=== PATIENT | male | born 1970 | race African-American/Black ===

== ENCOUNTER 2020-02-29 02:14 | Day surgery (SDC) | payer OTHER, SELFPAY ==
[2020-02-26 10:41] VITALS: BMI 34.5
--- NOTE | 2020-02-27 10:48 | PM.HPGS ---
History of Present Illness History of Present Illness Consent: Risks, benefits, and alternatives have been discussed and questions answered. Patient agrees to proceed with procedure. Chief complaint: right thyroid nodule Narrative: Darinel Fang is a 49 year old male he has a large right thyroid nodule admitted for elective right thyroidectomy Review of Systems Review of Systems: All systems reviewed & are unremarkable except as noted in HPI and below Meds Home Medications and Allergies Home Medications Medication Instructions Recorded Confirmed Type amlodipine 5 mg PO QPM 02/26/20 02/26/20 History hydrochlorothiazide 12.5 mg PO QPM 02/26/20 02/26/20 History naproxen 250 mg PO BID PRN 02/26/20 02/26/20 History oxcarbazepine 300 mg PO BID 02/26/20 02/26/20 History triamcinolone acetonide 1 applic TOPICAL BID PRN 02/26/20 02/26/20 History Allergies Allergy/AdvReac Type Severity Reaction Status Date / Time fish derived Allergy Unknown Verified 02/26/20 10:37 Penicillins Allergy Unknown Verified 02/26/20 10:37 Assessment and Plan Additional Plan plan is I write thyroidectomies explain all risks regarding vocal weakness
--- NOTE | 2020-02-28 08:28 | WPDANESEPPF ---
Anes - Initial Pre Proc Eval Procedure: Operation Date: 02/29/20 10:00 Proposed Procedures p Right Thyroidectomy - Austin Faria MD Date/Time: 02/28/20 08:28 Surgeon: Austin Faria MD Pre Op Diagnosis: right thyroid nodule Patient Data Age: 49 Gender: M Height: 1.78 m Weight: 109.32 kg Allergies Allergy/AdvReac Type Severity Reaction Status Date / Time fish derived Allergy Unknown Verified 02/26/20 10:37 Penicillins Allergy Unknown Verified 02/26/20 10:37 Home Medications Medication Instructions Recorded Confirmed Type amlodipine 5 mg PO QPM 02/26/20 02/26/20 History hydrochlorothiazide 12.5 mg PO QPM 02/26/20 02/26/20 History naproxen 250 mg PO BID PRN 02/26/20 02/26/20 History oxcarbazepine 300 mg PO BID 02/26/20 02/26/20 History triamcinolone acetonide 1 applic TOPICAL BID PRN 02/26/20 02/26/20 History Patient hx anesthesia problems: none Family hx anesthesia problems: none [facility] Past Medical History Medical History (Updated 02/28/20 @ 08:18 by Jorge Rich DO) Borderline personality disorder Depression GERD (gastroesophageal reflux disease) Goiter Hypertension Neuropathy UMBERTO (obstructive sleep apnea) Anes - Eval Final PreProcedure Day of Procedure 02/28/20 08:28 Patient weight: obese Heart: regular rate and rhythm Lungs: clear to auscultation and normal air movement Airway: Mallampati scale class II and special considerations poor extension Neurological: alert and oriented Last oral intake: >/= 8 hours ASA classification: III Emergent: no Anesthetic plan: proceed Anesthesia type and monitoring: general ETT and standard monitoring Informed Consent: The patient's anesthetic plan and its attendant risks and benefits were discussed with the patient/family/POA. Questions were solicited and answers provided to the satisfaction of the patient/family/POA.
[2020-02-29] VITALS (11 sets, daily range): BP systolic 125–162; BP diastolic 65–100; PULSE 62–86; RESP 12–20; TEMP 36.3–36.4; O2SAT 92–100
--- NOTE | 2020-02-29 06:12 | WPDHPUPDATE1 ---
History and Physical Update Update Date/Time: 02/29/20 06:12 History and Physical has been reviewed, including an updated exam of the patient. There are NO changes in the patient's condition. Risks, benefits, and alternatives have been discussed and questions answered. Patient agrees to proceed with procedure.
[2020-02-29] MEDS: ACETAMINOPHEN 500 MG TABLET 1000 MG PO (09:00)
[2020-02-29] MEDS: LACTATED RINGERS 1,000 ML 30 ML IV CONT ×2 (09:15→12:28)
--- NOTE | 2020-02-29 09:27 | SUR.PREOP ---
0927-DR. POWERS AWARE OF PT ALLERGY TO PCN, NO ANTIBIOTIC ORDERED/NEEDED.
[2020-02-29] MEDS: LIDO 1%/EPINEPHRINE 1:100,000 20 ML VIAL 3 ML INFILTRATE (10:26)
--- NOTE | 2020-02-29 10:52 | PM.PROC ---
Procedure Note - Detailed Date of procedure: 02/29/20 Pre-op diagnosis: right thyroid nodule Post-op diagnosis: same Procedure performed: right thyroidectomy Description of procedure: Right thyroidectomy patient was prepped in general general seizure and a low collar incision was made and subplatysmal flaps elevated midline strap muscle divided a large right thyroid nodule in the face of a multinodular goiter was identified with LigaSure dissection the mass was removed over the tracheoesophageal groove care being taken to preserve the recurrent laryngeal nerve the mass with the nodule was removed the incision closed with chromic after he maturing placed in and Monocryl Anesthesia: GLMA Surgeon: Austin Faria MD Estimated blood loss (mL): 25 Drains: No Pathology: yes Complications: No immediate complications Condition: stable Disposition: PACU Findings: large right thyroid nodule
--- NOTE | 2020-02-29 12:00 | SUR.PHASEI ---
PT AWAKE AND ALERT. RESP EVEN UNLABORED. P,W,D. HOB ELEVATED 30 DEGREES. INCISION TO ANTERIOR NECK D/I. FENTANYL GIVEN PRN. PT TALKATIVE.
--- NOTE | 2020-02-29 12:21 | SUR.PHASEI ---
PT AWAKE AND ALERT. RELAXED. VERY TALKATIVE. RESP EVEN UNLABORED. P,W,D. STATES STILL HAVING PAIN. ASKING FOR SOMETHING TO DRINK. FENTANYL GIVEN PRN.
--- NOTE | 2020-02-29 12:33 | SUR.PHASEI ---
1233; PT RELAXED; SAO2 DROPS TO 85% ON ROOM AIR. RESP EVEN UNLABORED. P,W,D. ENCOURAGED SLOW DEEP BREATHS. SAO2 REBOUNDS QUICKLY. PT STATES HE DOES NOT USE A CPAP MACHINE BUT DOES HAVE SLEEP APNEA.
--- NOTE | 2020-02-29 12:36 | SUR.PHASEI ---
PT SAO2 DROPPING TO LOW 80'S WHEN RESTING THEN REBOUNDS QUICKLY. O2 2L NC APPLIED
--- NOTE | 2020-02-29 12:48 | SUR.PHASEI ---
PT DOZING OFF AND ON.
--- NOTE | 2020-02-29 12:52 | SUR.PHASEI ---
PT ASKED IF HE COULD STAY OVERNIGHT AND HAVE SOME TEQUILA. EXPLAINED HE WOULD BE GOING HOME AND NO ALCOHOL FOR 24 HOURS.
--- NOTE | 2020-02-29 12:57 | SUR.PHASEI ---
PT AWAKE, MEETS PACU DISCHARGE CRITERIA.
--- NOTE | 2020-02-29 13:37 | SUR.PHASEII ---
SAO2 STABLE AT 96-97% ON ROOM AIR. RESP EVEN UNLABORED. P,W,D.
--- NOTE | 2020-02-29 13:40 | SUR.PHASEII ---
OFFICERS AT BEDSIDE. PT AWAKE AND ALERT. WEARING GLASSES. EATING AND DRINKING WITHOUT DIFFICULTY, WATCHING TELEVISION.
--- NOTE | 2020-02-29 15:37 | SUR.PHASEII ---
1400; PT READY FOR DISCHARGE. AWAKE AND ALERT. STATES PAIN 7/10. EATING AND DRINKING WITHOUT DIFFICULTY. WATCHING TELEVISION. TALKATIVE. RESP EVEN UNLABORED. Ric Hoyos D.
--- NOTE | 2020-02-29 15:38 | SUR.PHASEII ---
1420; PT DISCHARGED WITH LONGTERM GUARDS
== END 2020-02-29 14:20 | disposition home or self-care (01) ==
PROVIDERS: Visit Provider Otolaryngology
PROC: (CPT 60210; principal; 2020-02-29 10:00)
DX: E04.2 Nontoxic multinodular goiter (principal); I10 Essential (primary) hypertension; G47.33 Obstructive sleep apnea (adult) (pediatric); G62.9 Polyneuropathy, unspecified; K21.9 Gastro-esophageal reflux disease without esophagitis; F32.9 Major depressive disorder, single episode, unspecified; F60.3 Borderline personality disorder; E66.9 Obesity, unspecified; Z68.36 Body mass index [BMI] 36.0-36.9, adult
CPT/HCPCS: 60210; 88307; A9270; J0330; J1100; J2250; J2405; J2704; J3010; J7120

== ENCOUNTER 2024-11-10 12:07 | Outpatient (CLI) | payer OTHER, SELFPAY ==
--- NOTE | ~2024-11-10 | US_ITS ---
EXAMINATION: US FNA w image guidance DATE: 11/10/2024 13:19 INDICATION: Thyroid nodule TECHNIQUE: Ultrasound-guided fine-needle aspiration of the thyroid was performed by Dr. Brewster. The neck was prep ped and draped in the usual sterile manner. 4 mL 1% lidocaine was used for local anesthesia. 6 pass es were made with a 25G needle into the lesion. Appropriate needle location was documented with cont inuous sonographic guidance. A sterile bandage was applied. There were no immediate complications. FINDINGS: Grayscale ultrasound images demonstrate biopsy needles advanced into a 1.9 cm predominantly solid lef t thyroid nodule. IMPRESSION: 1. Successful ultrasound-guided fine needle aspiration of a 1.9 cm predominantly solid left thyroid nodule. Reviewed, dictated and finalized at location A. IMPRESSION: 1. Successful ultrasound-guided fine needle aspiration of a 1.9 cm predominant ly solid left thyroid nodule.
--- OUTSIDE RECORDS SUMMARY | 2024-11-10 12:13 | XMS_ITS | Clinical Summary ---
Author Organization [facility] Address [address] [place] [address] Care Team Providers Care Electrotype Finisher Name Role Phone Yusef Walker MD, [facility] Primary Care Provider [phone] Allergies Active Allergy Reactions Criticality Noted Date Comments Fish-Derived Products Rash Low 05/16/2024 Milk (Cow) Hives 05/16/2024 Penicillins Anaphylaxis,Hives High 05/16/2024 Medications acetaminophen (TYLENOL) 325 MG tablet Take 2 tablets (650 mg total) by mouth every 6 (six) hours as needed for Pain. Active amLODIPine (NORVASC) 10 MG tablet Take 1 tablet (10 mg total) by mouth daily. Active chlorthalidone (HYGROTEN) 25 MG tablet Take 0.5 tablets (12.5 mg total) by mouth daily. Active famotidine (PEPCID) 20 MG tablet Take 1 tablet (20 mg total) by mouth 2 (two) times daily. Active labetalol (NORMODYNE) 100 MG tablet Take 1 tablet (100 mg total) by mouth 2 (two) times daily. Active lidocaine 4 % patch Place 1 patch onto the skin daily. Remove & Discard patch within 12 hours or as directed by MD Active lisinopril (PRINIVIL) 40 MG tablet Take 1 tablet (40 mg total) by mouth daily. Active naproxen (NAPROSYN) 250 MG tablet Take 1 tablet (250 mg total) by mouth 2 (two) times daily with meals. Active tamsulosin (FLOMAX) 0.4 MG Cap Take 1 capsule (0.4 mg total) by mouth daily. Active Active Problems No known active problems Resolved Problems Problem Noted Date Diagnosed Date Resolved Date Screening for colon cancer 11/16/2023 0 11/22/2023 Screening for colon cancer 11/16/2023 0 02/14/2024 Screening for colon cancer 11/16/2023 1 Screening for colon cancer 11/16/2023 1 Encounters Date Type Department Care Team Description 09/14/2024 1:00 PM CUSTOM FURRIER - 09/14/2024 11:59 PM CUSTOM FURRIER Hospital Encounter [facility] [address] [place] [address] Courtney Duran PA Discharge Disposition: Home or Self Care (Routine Discharge) 09/14/2024 Travel from Last 3 Months Social History Tobacco Use Types Packs/Day Years Used Date Smoking Tobacco: Never Smokeless Tobacco: Never Tobacco Cessation:Counseling Given: Not Answered Alcohol Use Standard Drinks/Week Comments Never 0 (1 standard drink = 0.6 oz pur e alcohol) Sex and Gender Information Value Date Recorded Sex Assigned at Male 09/14/2024 1:13 PM CUSTOM FURRIER Legal Sex Male 11:44 AM CDT Gender Identity Not on file Sexual Orientation Not on file Last Filed Vital Signs Vital Sign Reading Time Taken Comments Blood Pressure 155/101 05/16/2024 10:44 AM CDT Pulse 74 05/16/2024 10:44 AM CDT Temperature 36.2 C (97.2 F) 05/16/2024 8:52 AM CDT Respiratory Rate 18 05/16/2024 10:44 AM CDT Oxygen Saturation 97% 05/16/2024 10:44 AM CDT Inhaled Oxygen Concentration - - Weight 113.4 kg (250 lb) 05/16/2024 8:52 AM CDT Height 177.8 cm (5' 10 ) 05/16/2024 8:52 AM CDT Body Mass Index 35.87 05/16/2024 8:52 AM CDT Plan of Treatment Health Maintenance Due Date Last Done Comments Annual Physical 1971 Hepatitis C 1986 DTaP, Tdap and Td Vaccines ( 1 - Tdap) 1987 Hepatitis B Vaccines (1 of 3 - 19+ 3-dose series) 1987 Zoster Vaccines (1 of 2) 2018 COVID-19 Vaccine (2023-2 5 season) 2024 PHQ-2 (Physician [place]) 08/02/2024 Colorectal Cancer Screening Colonoscopy (10 Years) 05/16/2034 05/16/2024 Meningococcal B Vaccine Aged Out No l onger eligible based on patient's age to complete this topic Meningococcal Vaccine Aged Out No deidre justin eligible based on patient's age to complete this topic Pneumococcal Vaccine: Pediat rics (0 to 5 Years) and At-Risk Patients (6 to 64 Years) Aged Out No longer eligi ble based on patient's age to complete this topic RSV Immunizations Under 20 Months Aged Out No longer eligible based on patient's age to complete this topic Procedures Procedure Name Priority Date/Time Associated Diagnosis Comments MRI LUMB SPINE WO CON Routine 09/14/2024 2:12 PM CUSTOM FURRIER Low back pain MRI CERV SPINE WO CON Routine 09/14/2024 1:55 PM CUSTOM FURRIER Neck pain from Last 3 Months Results * MRI LUMB SPINE WO CON (09/14/2024 2:12 PM CUSTOM FURRIER) Anatomical Region Laterality Modality Spine Magnetic Resonan ce 09/15/2024 8:27 AM CUSTOM FURRIER Impressions 09/15/2024 8:39 AM CUSTOM FURRIER IMPRESSION: 1. Mild endplate and facet joint degenerative change. No spinal stenosis. 2. Multilevel bilateral neural foramen narrowing. Worst at L4-5. Details above. Ordered By: COURTNEY DURAN Interpreted By: Nohelia Soni, 09/15/2024 8:27 AM Narrative 09/15/2024 8:39 AM CUSTOM FURRIER [address] [place] [address] IMAGING STUDIES: MRI LUMB SPINE WO CON DATE: 09/14/2024 1:55 PM INDICATION: low back pain . Pain in left lower extremity. COMPARISON: No prior studies for comparison. FINDINGS: Exam is slightly limited due to patient motion Vertebral body heights are well-maintained. No osseous edema. Mild decrease in disc space height at L5-S1 with mild disc dehydration.. The conus ends at L1 without gross abnormality.. No paraspinal lesions T12-L1: No disc herniation, spinal or foraminal stenosis. L1-L2: No disc herniation, spinal or foraminal stenosis. L2-L3: No disc herniation, spinal or foraminal stenosis. L3-L4: Mild disc bulge without disc herniation or spinal stenosis. Mild ligamentum flavum hypertrophy. 50% bilateral neural foramen narrowing. May cause symptomatology with the bilateral L3 nerve roots. Narrowing best seen on sagittal images. L4-L5: Mild posterior disc/osteophyte complex with mild impression upon the anterior thecal sac. No spinal stenosis. Mild ligamentum flavum hypertrophy and facet joint degenerative change.. 75-90% bilateral neural foramen narrowing, greater on the left side. Appearance of small bilateral neural foramen disc herniations. May cause symptomatology with the bilateral L4 nerve roots. L5-S1: Mild posterior disc/osteophyte complex. Minimal high signal within the posterior disc. May be due to annular tear. No spinal stenosis. Mild facet joint degenerative change. 50% bilateral neural foramen narrowing due to disc/osteophyte complex. May cause symptomatology with the bilateral L5 nerve roots. Procedure Note Andrés Soni MD - 09/15/[address] [place] [address] IMAGING STUDIES: MRI LUMB SPINE WO CONDATE: 09/14/2024 1:55 PM INDICATION: low back pain . Pain in left lower extremity. COMPARISON: No prior studies for comparison. FINDINGS: Exam is slightly limited due to patient motion Vertebral body heights are well-maintained. No osseous edema. Milddecrease in disc space height at L5-S1 with mild disc dehydration.. Theconus ends at L1 without gross abnormality.. No paraspinal lesions T12-L1: No disc herniation, spinal or foraminal stenosis. L1-L2: No disc herniation, spinal or foraminal stenosis. L2-L3: No disc herniation, spinal or foraminal stenosis. L3-L4: Mild disc bulge without disc herniation or spinal stenosis. Mildligamentum flavum hypertrophy. 50% bilateral neural foramen narrowing. Maycause symptomatology with the bilateral L3 nerve roots. Narrowing bestseen on sagittal images. L4-L5: Mild posterior disc/osteophyte complex with mild impression uponthe anterior thecal sac. No spinal stenosis. Mild ligamentum flavumhypertrophy and facet joint degenerative change.. 75-90% bilateral neuralforamen narrowing, greater on the left side. Appearance of small bilateralneural foramen disc herniations. May cause symptomatology with thebilateral L4 nerve roots. L5-S1: Mild posterior disc/osteophyte complex. Minimal high signal withinthe posterior disc. May be due to annular tear. No spinal stenosis. Mildfacet joint degenerative change. 50% bilateral neural foramen narrowingdue to disc/osteophyte complex. May cause symptomatology with thebilateral L5 nerve roots. IMPRESSION: 1. Mild endplate and facet joint degenerative change. No spinalstenosis. 2. Multilevel bilateral neural foramen narrowing. Worst at L4-5. Detailsabove. Ordered By: COURTNEY DURAN Interpreted By: Nohelia Soni, 09/15/2024 8:27 AM Courtney LINN MRI Final Resul t * MRI CERV SPINE WO CON (09/14/2024 1:55 PM CUSTOM FURRIER) Anatomical Region Laterality Modality Spine Magnetic Resonan ce 09/19/2024 7:24 AM CUSTOM FURRIER Impressions 09/19/2024 7:42 AM CUSTOM FURRIER IMPRESSION: 1. Status post anterior plate screw fixation with interbody fusion at C4-C7. No acute osseous abnormality 2. Severe bilateral foraminal stenosis at C7/T1 due to disc space narrowing, uncovertebral arthropathy and facet arthropathy. Moderate bilateral foraminal stenosis at C3/C4, C4/C5, C5/C6 and C6/C7. 3. Mild to moderate central canal stenosis at C7/T1 due to disc bulging. Referred By: COURTNEY DURAN Interpreted By: Jose Maria Hein MD, 09/19/2024 7:24 AM Narrative 09/19/2024 7:42 AM CUSTOM FURRIER [address] [place] [address] EXAMINATION:MRI of the cervical spine without contrast 09/14/2024 INDICATION:Neck pain, bilateral upper extremity pain TECHNIQUE: Multiplanar multisequence MR imaging of the cervical spine was performed without intravenous contrast. COMPARISON: None FINDINGS:Cervical spine is in anatomic alignment. There is artifact from a anterior plate screw fixation hardware the C4, C5-C6 and C7 levels. Bone marrow signal is within normal limits. No acute fracture or dislocation. 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 Cervical spinal cord is unremarkable in course caliber contour and signal. No prevertebral edema. No paraspinal mass or fluid collection. There is a 1.4 cm T2 hyperintense lesion within the left lobe of the thyroid gland. No stenosis at the foramen magnum or C1/C2 level C2/C3: Disc space narrowing disc bulging with mild uncovertebral facet arthropathy C3/C4: Mild disc space narrowing, disc bulging, uncovertebral arthropathy and facet arthropathy causing slight effacement of ventral thecal sac and moderate bilateral foraminal stenosis. C4/C5: Mild uncovertebral facet arthropathy causing moderate bilateral foraminal stenosis. C5/C6: Disc space narrowing, uncovertebral arthropathy and facet arthropathy causing moderate bilateral neural foraminal stenosis C6/C7: Disc space narrowing, uncovertebral arthropathy and facet arthropathy causing moderate bilateral foraminal stenosis. C7/T1: Disc space narrowing, disc bulging, uncovertebral arthropathy and facet arthropathy causing mild to moderate central canal stenosis and severe bilateral foraminal stenosis. The thecal sac measures 6 mm Evaluation is limited due to motion and artifact. Procedure Note Jose Maria Hein MD - 09/19/[address] [place] [address] EXAMINATION:MRI of the cervical spine without contrast 09/14/2024 INDICATION:Neck pain, bilateral upper extremity pain TECHNIQUE: Multiplanar multisequence MR imaging of the cervical spine wasperformed without intravenous contrast. COMPARISON: None FINDINGS:Cervical spine is in anatomic alignment. There is artifact froma anterior plate screw fixation hardware the C4, C5-C6 and C7 levels.Bone marrow signal is within normal limits. No acute fracture ordislocation. There is a small chronic infarct within the heather to the right of themidline. Cervical spinal cord is unremarkable in course caliber contourand signal. No prevertebral edema. No paraspinal mass or fluidcollection. There is a 1.4 cm T2 hyperintense lesion within the left lobeof the thyroid gland. No stenosis at the foramen magnum or C1/C2 level C2/C3: Disc space narrowing disc bulging with mild uncovertebral facetarthropathy C3/C4: Mild disc space narrowing, disc bulging, uncovertebral arthropathyand facet arthropathy causing slight effacement of ventral thecal sac andmoderate bilateral foraminal stenosis. C4/C5: Mild uncovertebral facet arthropathy causing moderate bilateralforaminal stenosis. C5/C6: Disc space narrowing, uncovertebral arthropathy and facetarthropathy causing moderate bilateral neural foraminal stenosis C6/C7: Disc space narrowing, uncovertebral arthropathy and facetarthropathy causing moderate bilateral foraminal stenosis. C7/T1: Disc space narrowing, disc bulging, uncovertebral arthropathy andfacet arthropathy causing mild to moderate central canal stenosis andsevere bilateral foraminal stenosis. The thecal sac measures 6 mm Evaluation is limited due to motion and artifact. IMPRESSION: 1. Status post anterior plate screw fixation with interbody fusion atC4-C7. No acute osseous abnormality 2. Severe bilateral foraminal stenosis at C7/T1 due to disc spacenarrowing, uncovertebral arthropathy and facet arthropathy. Moderatebilateral foraminal stenosis at C3/C4, C4/C5, C5/C6 and C6/C7. 3. Mild to moderate central canal stenosis at C7/T1 due to discbulging. Referred By: COURTNEY DURAN Interpreted By: Jose Maria Hein MD, 09/19/2024 7:24 AM Courtney Duran [place] MRI Final Resul t from Last 3 Months Insurance Care Teams Electrotype Finisher Relationship Specialty Start Date End Date Baltazar Holbrook MD [facility] [address] [place] [id number] PCP - General INTERNAL MEDICINE 08/16/19
--- OUTSIDE RECORDS SUMMARY | 2024-11-10 12:13 | XMS_ITS | Clinical Summary ---
Author Organization [facility] Address [address] [place] [address] Care Team Providers Care Quality Control Scientist Name Role Phone Unavailable Primary Care Provider Unavailabl e Source Comments [facility],non-owned Affiliates and Associated Physician Practices is amultiple site organization consisting of ambulatory clinics and hospital sitesin [place], [place], [place] and [place]. This disclosure is being madepursuant to the Care Everywhere program and may not contain all information available regarding this patient. Last updated 18.[facility] Allergies Active Allergy Reactions Criticality Noted Date Comments Fish-Derived Products Unknown 12/30/2022 Penicillins Unknown 12/30/2022 Medications * Be aware that medications may not be up to date on this document. Alwaysverify current medications with the patient. Medication Sig Dispensed Refills Start Date End Date Status amLODIPine (Norvasc) 10 MG tablet Take 1 (one) tablet by mouth once daily Active chlorthalidone (Hygroton) 25 MG tablet Take 0.5 (one-half) tablet by mouth once daily Active labetalol (Normodyne; Trandate) 100 MG tablet Take 1 (one) tablet by mouth 2 times daily Active lisinopril (Prinivil; Zestril) 40 MG tablet Take 1 (one) tablet by mouth once daily Active naproxen (Naprosyn) 250 MG tablet Take 1 (one) tablet by mouth 2 times daily as needed for Pain Active famotidine (Pepcid) 20 MG tablet Active oxyCODONE, immediate release, (Roxicodone) 5 MG tabletIndications: Thyroid goiter Take 1 (one) tablet by mouth every 4 hours as needed 12 tablet 07/23/2023 Active acetaminophen (Tylenol) 325 MG tablet Take 2 (two) tablets by mouth every 6 hours as needed for Fever or Pain Maximum allowable Acetaminophen amount = 4 Grams (4000 mg) / 24 hours. 07/23/2023 Active ibuprofen (Motrin) 600 MG tablet Take 1 (one) tablet by mouth every 6 hours as needed for Pain 07/23/2023 Active Active Problems Problem Noted Date Diagnosed Date Thyroid goiter 12/30/2022 Social History Tobacco Use Types Packs/Day Years Used Date Smoking Tobacco: Former Cigarettes Q uit: 08/02/1988 Smokeless Tobacco: Never Tobacco Cessation:Counseling Given: Not Answered Alcohol Use Standard Drinks/Week Comments Not Currently 0 (1 standard drink = 0.6 oz pur e alcohol) AUDIT-C Answer Date Recorded Q1: How often do you have a drink containing alcohol? Never 07/22/2023 Q2: How many drinks containi ng alcohol do you have on a typical day when you are drinking? Patient does not drink Q3: How often do you have si x or more drinks on one occasion? Never 07/22/2023 Sex and Gender Information Value Date Recorded Sex Assigned at Not on file Gender Identity Not on file Sexual Orientation Not on file Last Filed Vital Signs Vital Sign Reading Time Taken Comments Blood Pressure 111/70 07/23/2023 9:20 AM [facility]IOR [facility] Pulse 60 07/23/2023 9:20 AM [facility] Temperature 36.8 C (98.2 F) 07/23/2023 8:02 AM SENIOR SPECIALIST Respiratory Rate 18 07/23/2023 8:02 AM SENIOR SPECIALIST Oxygen Saturation 95% 07/23/2023 9:20 AM SENIOR SPECIALIST Inhaled Oxygen Concentration - - Weight 110.2 kg (243 lb) 07/22/2023 6:14 AM SENIOR SPECIALIST Height 177.8 cm (5' 10 ) 07/22/2023 6:14 AM SENIOR SPECIALIST Body Mass Index 34.87 07/22/2023 6:14 AM SENIOR SPECIALIST Plan of Treatment Health Maintenance Due Date Last Done Comments COLOGUARD (AGES 45-75) - COL ON CA SCREENING 1968 COLON MONITORING 1968 COLONOSCOPY - COLON CA SCREENING 1968 CT COLONOGRAPHY - COLON CA SCREENING 1968 Colorectal Cancer Screening 1968 FIT - COLON CA SCREENING 1968 FLEX SIG - COLON CA SCREENING 1968 LIPID TESTING 1968 HIV SCREENING 1983 HEPATITIS C SCREENING 05/07/1986 DTAP/TDAP/TD VACCINES (1 - Tdap) 1987 HEPATITIS B VACCINE (1 of 3 - 19+ 3-dose series) 1987 PNEUMOCOCCAL VACCINE 50+ (1 of 1 - PCV) 2018 ZOSTER VACCINE (1 of 2) 2018 COVID-19 VACCINE (1 - 2023-2 5 season) 2024 DEPRESSION SCREENING 08/02/2024 INFLUENZA VACCINE (Season Ended) 2025 SCREENING FOR DIABETES 07/23/2026 07/23/2023 HIB VACCINE Aged Out No longer eligi ble based on patient's age to complete this topic HPV VACCINE Aged Out No longer eligi ble based on patient's age to complete this topic MENINGOCOCCAL (Group B) VACC INE SHARED DECISION-MAKING Aged Out No longer eligibl e based on patient's age to complete this topic MENINGOCOCCAL GROUPS A/C/Y/W VACCINE Aged Out No longer eligible b ased on patient's age to complete this topic PNEUMOCOCCAL VACCINE Aged Out No long er eligible based on patient's age to complete this topic Procedures Procedure Name Priority Date/Time Associated Diagnosis Comments BASIC METABOLIC PANEL (CALCIUM TOTAL) Routine 07/23/2023 1:05 AM [facility] Thyroid goiter from Last 3 Months or Most Recently Relevant to Health Maintenance Results * (ABNORMAL) BASIC METABOLIC PANEL (CALCIUM TOTAL) (07/23/2023 1:05 AM SENIOR SPECIALIST) BUN 13 7 - 26 mg/dL 07/23/2023 1:51 AM [facility] Creatinine 1.40(H) 0.71 - 1.16 mg/dL 07/23/2023 1:51 AM [facility] Sodium 138 136 - 145 mmol/L 07/23/2023 1:51 AM [facility] Potassium 3.9 3.5 - 4.5 mmol/L 07/23/2023 1:51 AM [facility] Chloride 107 98 - 107 mmol/L 07/23/2023 1:51 AM [facility] CO2 24 22 - 29 mmol/L 07/23/2023 1:51 AM [facility] Glucose 148(H) 70 - 115 mg/dL 07/23/2023 1:51 AM [facility] Calcium 8.1(L) 8.4 - 10.2 mg/dL 07/23/2023 1:51 AM [facility] Anion Gap 7 6 - 16 07/23/2023 1:51 AM [facility] BUN/Creatinine Ratio 9 7 - 23 07/23/2023 1:51 AM [facility] Osmolality Calculated 289 275 - 295 mOsm/kg 07/23/2023 1:51 AM [facility] eGFR by CKD-EPI 59(L) >=90 mL/min/1.7 3 m2 07/23/2023 1:51 AM [facility] Blood BLOOD SPECIMEN / Unknown Lab Venipuncture / Unknown 07/23/2023 1:05 AM [facility] 07/23/2023 1:21 AM [facility] Chuck Anderson MD LAB - CHEMISTRY [facility] Organization Address City/State/ZIP Co de Phone Number [facility] [address] [place] [address], [facility] [phone] from Last 3 Months or Most Recently Relevant to Health Maintenance Advance Directives * Full Code (Latest Code Status on File) Date Activated Date Inactivated Comments 07/22/2023 2:42 PM 07/23/2023 2:07 PM
== END 2024-11-10 12:08 | disposition home or self-care (01) ==
PROVIDERS: PCP Physician Assistant; Visit Provider Physician Assistant
DX: E66.9 Obesity, unspecified (principal); I10 Essential (primary) hypertension; M54.50 Low back pain, unspecified
CPT/HCPCS: 10005; 88172; 88173; 88305